=== PATIENT | female | born 2000 | race Two or more races ===

== ENCOUNTER 2024-09-18 06:28 | Emergency (ER) | payer OTHER, SELFPAY ==
[2024-09-18 06:28] VITALS: BMI 25.8
[2024-09-18 06:36] VITALS: BP 107/68; PULSE 110; RESP 18; TEMP 36.4; O2SAT 100
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
--- NOTE | 2024-09-18 06:50 | XR_ITS ---
Examination: Bilateral hips, AP pelvis, 5 views Technique: AP, lateral views both hips, AP pelvis, 5 views Exam date and time: September 20, 2024 at 0837 hrs. Indications: Patient fell today with injury to both hips, bilateral hand pain. Findings: No right or left hip fracture, no hip dislocations Bones of the pelvis intact Impression: No acute hip or pelvic fracture
--- NOTE | 2024-09-18 06:50 | XR_ITS ---
Examination: Lumbar spine 3 views Technique :AP lateral coned lateral lower lumbar spine 3 views Date and time: September 20, 2024 0334 hrs. Indications: Patient fell today with injury to the lower back, lower back pain. Findings: Satisfactory lumbar vertebral bodies No lumbar fracture. No significant lumbar disc narrowing Impression: No lumbar fracture
--- NOTE | 2024-09-18 06:50 | XR_ITS ---
Examination: Tibia-Fibula, left , 2 views Technique: Tibia-fibula AP lateral 2 views Date and time of exam: September 18, 2024 0726 hrs. Indications: Patient fell today with injury to the lower leg, lower leg pain Findings: No acute fracture No dislocation No foreign body Impression: No acute fracture
--- NOTE | 2024-09-18 06:50 | XR_ITS ---
Examination: Left femur 2 views Technique :AP lateral left femur 2 views Exam date and time: September 20, 2024 0842 hrs. Indications: Patient fell today with injury to left femur, left femur pain Findings: No hip fracture or hip dislocation. Shaft of the femur intact Impression: No acute fracture
--- NOTE | 2024-09-18 06:50 | XR_ITS ---
Examination: Knee, left , 3 views Technique: Knee AP, lateral, oblique 3 views Date and time of exam: September 18, 2024 at 0728 hrs. Indications: Patient fell today with injury to the knee, knee pain Findings: No fracture or dislocation. No foreign body Impression: No fracture or dislocation
--- NOTE | 2024-09-18 06:50 | XR_ITS ---
EXAMINATION: Ankle, left 3 views . Technique: Ankle AP, oblique, lateral 3 views Date and time of exam: September 18, 2024 0721 hrs. Indications: Injury to the ankle today, ankle pain Findings: No acute fracture No ankle dislocation Impression: No acute fracture
--- NOTE | 2024-09-18 06:50 | XR_ITS ---
Examination: Foot, right, 3 views Technique: AP, oblique, lateral views foot, 3 views Date and time of exam: September 18, 2024 0717 hrs. Indications: Injured the foot today, foot pain Findings: No acute fracture No dislocation No foreign body Impression: No acute fracture
[2024-09-18] MEDS: ACETAMINOPHEN 500 MG TABLET 1000 MG PO (07:35)
[2024-09-18] MEDS: ONDANSETRON ODT 4 MG TABRAP PO ×2 (07:35→11:07)
[2024-09-18] MEDS: IBUPROFEN TAB 400 MG TABLET 800 MG PO (07:38)
[2024-09-18 08:08] LABS: HCG Qualitative,Urine Negative
[2024-09-18] MEDS: HYDROcodone/APAP 5/325 TABLET 1 TAB PO (11:06)
[2024-09-18 11:14] VITALS: BP 142/80; PULSE 80; RESP 18; TEMP 36.7; O2SAT 97
== END 2024-09-18 11:15 | disposition home or self-care (01) ==
PROVIDERS: Nurse Practitioner Family; Emergency Provider Emergency Medicine
DX: S80.12XA Contusion of left lower leg, initial encounter (principal); S70.00XA Contusion of unspecified hip, initial encounter; M54.50 Low back pain, unspecified; G89.29 Other chronic pain; W03.XXXA Other fall on same level due to collision with another person, initial encounter
CPT/HCPCS: 72100; 73522; 73552; 73562; 73590; 73610; 73630; 81025; 99283; Q0162; A9270